=== PATIENT | female | born 1975 | race Caucasian/White ===

== ENCOUNTER → 2016-10-05 | Outpatient (REF) ==
[~2016-10-05] MED LIST: CELEXA 20MG20 MG/TAB PO; IBU600 MG PO; PERCOCET 325 MG1 TA2 PO; SYNTHROID0.2 MG/TAB PO
== END ==
LOC: ZLAB.WCH 10:46
DX: Z01.89 Encounter for other specified special examinations (principal)

== ENCOUNTER → 2016-12-31 | Outpatient (REF) | LOC: ZLAB.WCH 18:12 | DX: Z01.89 Encounter for other specified special examinations (principal) ==

== ENCOUNTER → 2018-01-30 | Outpatient (REF) | LOC: ZLAB.WCH 18:41 | DX: Z01.89 Encounter for other specified special examinations (principal) ==